=== PATIENT | female | born 1945 | race Caucasian/White ===

== ENCOUNTER → 2017-12-03 | Emergency (ER) | payer OTHER ==
[~2017-12-03] VITALS: Ht 160 cm; Wt 67.6 kg
[~2017-12-03] MED LIST: ADULT ASPIRIN81 MG PO; COZAAR100 MG PO; GLIPIZIDE ER2.5 MG; Glucophage PO; PLAVIX 75MG PO
== END | disposition home or self-care (01) ==
LOC: ER 09:19
DX: R10.11 Right upper quadrant pain (principal); F41.1 Generalized anxiety disorder

== ENCOUNTER 2020-11-11 13:13 | Outpatient (CLI) | payer OTHER | END 2020-11-11 13:18 | disposition home or self-care (01) | LOC: RAD 13:13 | PROVIDERS: ATTEND Internal Medicine | DX: S09.90XA Unspecified injury of head, initial encounter (principal); M54.2 Cervicalgia ==

== ENCOUNTER 2022-07-04 07:19 | Outpatient (CLI) | payer OTHER | END 2022-07-04 07:24 | disposition home or self-care (01) | LOC: LAB 07:19 | PROVIDERS: ATTEND Internal Medicine | DX: U07.1 COVID-19 (principal); B34.1 Enterovirus infection, unspecified ==

== ENCOUNTER 2022-07-04 07:24 | Outpatient (CLI) | payer OTHER | END 2022-07-04 07:25 | disposition home or self-care (01) | LOC: NUCLEAR 07:24 | PROVIDERS: ATTEND Internal Medicine | DX: I20.9 Angina pectoris, unspecified (principal) | CPT/HCPCS: 78452; 93017; A9500 ==

== ENCOUNTER 2024-04-09 13:00 | Outpatient (CLI) | payer OTHER | END 2024-04-09 13:13 | disposition home or self-care (01) | LOC: TOM 13:00 | PROVIDERS: ATTEND Internal Medicine | DX: G45.9 Transient cerebral ischemic attack, unspecified (principal) ==

== ENCOUNTER 2024-07-24 07:55 | Outpatient (CLI) | payer OTHER | END 2024-07-24 07:57 | disposition home or self-care (01) | LOC: NUCLEAR 07:55 | PROVIDERS: ATTEND Internal Medicine | DX: E05.00 Thyrotoxicosis with diffuse goiter without thyrotoxic crisis or storm (principal) | CPT/HCPCS: 78013; A9512 ==

== ENCOUNTER 2024-07-30 12:32 | Outpatient (CLI) | payer OTHER | END 2024-07-30 12:39 | disposition home or self-care (01) | LOC: SONOGRAMA 12:32 | PROVIDERS: ATTEND Internal Medicine | DX: E04.2 Nontoxic multinodular goiter (principal) ==

== ENCOUNTER 2024-09-02 08:41 | Outpatient (CLI) | payer OTHER | END 2024-09-02 08:44 | disposition home or self-care (01) | LOC: SONOGRAMA 08:41 | PROVIDERS: ATTEND Pathology Anatomic Pathology & Clinical Pathology | DX: E04.2 Nontoxic multinodular goiter (principal); D34 Benign neoplasm of thyroid gland; E07.89 Other specified disorders of thyroid ==